=== PATIENT | male | born 1955 | race Caucasian/White ===

== ENCOUNTER 2016-11-30 12:16 | Emergency (ER) | payer MEDICARE, OTHER ==
[2016-11-30 13:20] LABS: HEMOGLOBIN 13.5 gm/dl (14.0-17.5); RED BLOOD COUNT 4.56 M/UL (4.20-5.50); WHITE BLOOD COUNT 6.6 K/UL (4.5-11.0)
[2016-11-30 13:42] LABS: BUN/CREATININE RATIO 16 (0-10)
== END 2016-11-30 15:05 | disposition home or self-care (01) ==
LOC: ER1 12:16
PROVIDERS: Family Medicine
DX: I10 Essential (primary) hypertension (principal); E11.9 Type 2 diabetes mellitus without complications
CPT/HCPCS: 36415; 80053; 81001; 82962; 83036; 85025; 99284